=== PATIENT | female | born 1995 | race Caucasian/White ===

== ENCOUNTER → 2019-08-05 | Outpatient (CLI) | payer SELFPAY ==
--- NOTE | 2019-08-05 14:01 | RADIOLOGY REPORT (SQ) ---
EXAM DESCRIPTION: U/S [id number] TRNABD 1GES W/ODOP IMAGES COMPLETED DATE/TIME: 08/05/2019 1:51 pm REASON FOR STUDY: Z34.81 ENCNTR FOR SUPRVSN OF NORMAL FIRST PREG, FIRST TRIMESTER Z34.01 ENCNTR FOR SUPRVSN OF NORMAL FIRST PREG, FIRST TRIMES COMPARISON: None. TECHNIQUE: Transabdominal static and realtime grayscale images acquired of the pelvis. Additional se lected spectral and color Doppler images recorded. All images stored on PACs. bHCG: Not available. CLINICAL DATES: 9 weeks 1 day. LIMITATIONS: None. FINDINGS: FETUS: Single Living intrauterine . ULTRASOUND EGA: 9 weeks 0 days. ULTRASOUND MEL: 03/09/2020 EFW: Not applicable less than 20 weeks. CRL: 2.26 cm. FHR: 169 Beats per minute. SURVEY: Too early to assess. AMNIOTIC FLUID: Adequate amount. PLACENTA: Not yet developed due to early gestation. SUBCHORIONIC BLEED: No. SIZE OF BLEED: Not applicable. UTERUS: No masses. No anomalies. CERVICAL LENGTH: 2.4 cm. Closed. RIGHT ADNEXA: Normal ovary with normal vascular flow. No adnexal free fluid. No adnexal masses. LEFT ADNEXA: Normal ovary with normal vascular flow. No adnexal free fluid. No adnexal masses. FREE FLUID: None. OTHER: No other significant finding. IMPRESSION: LIVING INTRAUTERINE . EGA 9 WEEK 0 DAYS. Trimester of : First trimester - 0 to 13 weeks. TECHNICAL DOCUMENTATION: JOB ID: [id number] [employer]- All Rights Reserved Reading location - IP/workstation name: [email or web address]
== END ==
LOC: RAD 13:18
PROVIDERS: ATTEND Midwife
DX: O36.80X0 Pregnancy with inconclusive fetal viability, not applicable or unspecified (principal); Z3A.09 9 weeks gestation of pregnancy
CPT/HCPCS: 76801

== ENCOUNTER 2020-02-20 15:39 | Inpatient (IN) | payer OTHER, MEDICAID ==
[2020-02-20 16:32] LABS: APPEARANCE,URINE SLIGHTLY-CLOUDY; BILIRUBIN,URINE NEGATIVE (NEGATIVE); COLOR,URINE YELLOW; GLUCOSE, URINE NEGATIVE (NEGATIVE); KETONES,URINE NEGATIVE (NEGATIVE); LEUKOCYTE ESTERASE,URINE NEGATIVE (NEGATIVE); NITRITE,URINE NEGATIVE (NEGATIVE); PROTEIN,URINE >=500 mg/dL (NEGATIVE); URINE SPECIFIC GRAVITY 1.016; UROBILINOGEN,URINE NEGATIVE mg/dL (<2.0)
[2020-02-20 16:40] LABS: ABSOLUTE EOSINOPHILS # (AUTO) 0.2 10^3/uL (0.0-0.6); ABSOLUTE LYMPHOCYTES (AUTO) 2.2 10^3/uL (0.5-4.7); ABSOLUTE MONOCYTES (AUTO) 1.3 10^3/uL (0.1-1.4); ABSOLUTE NEUT (AUTO) 9.9 10^3/uL (1.7-8.2); BASOPHILS % (AUTO) 0.3 % (0-2); EOSINOPHILS % (AUTO) 1.1 % (0-6); HEMATOCRIT 33.8 % (36.0-47.0); HEMOGLOBIN 11.1 g/dL (12.0-15.5); LYMPHOCYTES % (AUTO) 16.2 % (13-45); MEAN CORPUSCULAR HEMOGLOBIN 27.5 pg (27.0-33.4); MEAN CORPUSCULAR HGB CONC 32.7 g/dL (32.0-36.0); MEAN CORPUSCULAR VOLUME 84 fl (80-97); MONOCYTES % (AUTO) 9.7 % (3-13); PLATELET COUNT 273 10^3/uL (150-450); RED BLOOD COUNT 4.02 10^6/uL (3.72-5.28); RED CELL DISTRIBUTION WIDTH 13.9 % (11.5-14.0); SEGMENTED NEUTROPHILS % (AUTO) 72.7 % (42-78); TOTAL CELLS COUNTED % (AUTO) 100 %; WHITE BLOOD COUNT 13.6 10^3/uL (4.0-10.5)
[2020-02-20 16:45] LABS: URINE AMPHETAMINES SCREEN NEGATIVE; URINE BARBITURATES SCREEN NEGATIVE; URINE BENZODIAZEPINES SCREEN NEGATIVE; URINE COCAINE SCREEN NEGATIVE; URINE MARIJUANA (THC) SCREEN NEGATIVE; URINE METHADONE SCREEN NEGATIVE; URINE PHENCYCLIDINE SCREEN NEGATIVE
[2020-02-20 16:46] LABS: URINE CREATININE 66.3 mg/dL (16-327)
[2020-02-20 16:58] LABS: UR PRO/CREAT RATIO RESULT 8.1 mg/mg (0.0-0.2); URINE PROTEIN 540.2 mg/dL (<12)
[2020-02-20 17:01] LABS: ALBUMIN 3.2 g/dL (3.5-5.0); ALKALINE PHOSPHATASE 228 U/L (38-126); ANION GAP 5 (5-19); ASPARTATE AMINO TRANSFERASE 26 U/L (14-36); BILIRUBIN,DIRECT 0.1 mg/dL (0.0-0.4); BILIRUBIN,TOTAL 0.5 mg/dL (0.2-1.3); BLOOD UREA NITROGEN 10 mg/dL (7-20); CALCIUM 9.8 mg/dL (8.4-10.2); CARBON DIOXIDE 20 mmol/L (22-30); CHLORIDE 106 mmol/L (98-107); GLUCOSE 73 mg/dL (75-110); TOTAL PROTEIN 6.3 g/dL (6.3-8.2); URIC ACID 5.9 mg/dL (2.5-6.2)
[2020-02-20] MEDS ORDERED: MAG HYDROX/AL HYDROX/SIMETH SUSP 30 ML UDCUP PO PRN (17:19)
[2020-02-20] MEDS ORDERED: ZOLPIDEM TARTRATE 5 MG TABLET PO PRN (17:19)
[2020-02-20] MEDS ORDERED: OXYTOCIN/0.9 % SODIUM CHLORIDE 30 UNIT/500 ML RTUINJ IV PRN (17:19)
[2020-02-20] MEDS ORDERED: DINOPROSTONE 10 MG VAGINAL INSERT.SR PV ONE (17:19)
[2020-02-20] MEDS ORDERED: ACETAMINOPHEN 325 MG TABLET PO PRN (17:19)
[2020-02-20] MEDS ORDERED: RINGERS SOLUTION,LACTATED 300 ML IV ONE (17:19)
[2020-02-20] MEDS ORDERED: OXYTOCIN/0.9 % SODIUM CHLORIDE 30 UNIT/500 ML RTUINJ ONE (17:25)
[2020-02-20] MEDS ORDERED: OXYTOCIN 10 UNIT/ML VIAL ONE (17:25)
[2020-02-20] MEDS ORDERED: DINOPROSTONE 10 MG VAGINAL INSERT.SR ONE (17:25)
[2020-02-20] MEDS ORDERED: LIDOCAINE 1% INJ-PF (10 MG/ML) 30 ML SDV ONE (17:25)
[2020-02-20] MEDS ORDERED: MISOPROSTOL 0.2 MG TABLET ONE (17:25)
--- NOTE | 2020-02-20 17:27 | Admission Physical ---
Datetime Report Generated by CPN: 02/20/2020 17:26 CURRENT ADMISSION Chief Complaint: Signs/Symptoms Gestational HTN Indication for Induction: PreEclampsia Admit Impression : Term, Intrauterine ; Obstetrical Complication Admit Plan: Admit to Unit; Initiate Labor Induction Protocol ALLERGIES Medication Allergies: No Medication Allergies: No Known Allergies (02/20/2020) Latex: No Latex Allergies Food Allergies: None Environmental Allergies: None OBSTETRICAL HISTORY EDC: 03/09/2020 00:00 : 1 Para: 0 Term: 0 : 0 SAB: 0 IAB: 0 Ectopic: 0 Livin Cesareans: 0 VBACs: 0 Multiple Births: 0 Gestational Diabetes: Yes Rh Sensitization: No Incompetent Cervix: No JONATHAN: No Infertility: No ART Treatment: No Uterine Anomaly: No IUGR: No Hx Previous C/S: No Macrosomia: No Hx Loss/Stillborn: No PIH: No Hx : No Placenta Previa/Abruption: No Depression/PP Depression: No PTL/PROM: No Post Hemorrhage: No Current Procedures: Ultrasound; NST Obstetrical History Comments: G1- Current, Preeclampsia? SEE RECORDS Alcohol: No Marijuana : No Other Illicit Drugs: No Cigarettes: Current Everyday Smoker. 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 Heart Disease: No Hosp/Surgery: Yes Autoimmune Disorder: No Anesthetic Complications: No Kidney Disease: No Abnormal Pap Smear: No Neuro/Epilepsy: No Psychiatric Disorders: No Other Medical Diseases: No Hepatitis/Liver Disease: No Significant Family History: No Varicosities/Phlebitis: No Trauma/Violence : No Thyroid Dysfunction: No Medical History Comments: Right arm fx INFECTIOUS HISTORY Gonorrhea: No Genital Herpes: No Chlamydia: No Tuberculosis: No Syphilis: No Hepatitis: No HIV/AIDS Exposure: No Rash or Viral Illness: No HPV: No PHYSICAL EXAM General: Normal HEENT: Normal Neurologic: Normal Thyroid: Normal Heart: Normal Lungs: Normal Breast: Deferred Back: Normal Abdomen: Normal Genitourinary Exam: Normal Extremities: Normal DTRs: Normal Pelvic Type: Adequate Vital Signs: Reviewed VAGINAL EXAM Dilatation: 1 Effacement: 0 Station: -2 MEMBRANES Pooling: Negative Membranes: Intact FETUS A EGA: 37.3 Monitoring: External US FHR- Baseline: 120 Variability: Moderate 6-25bpm Decelerations: None FHR Category: Category I Presentation: Vertex Admit Comment: She is 37 weeks with mildly elevated bp and elevate P/Cr ratio. We will proceed with admission and consider a 24 hour urine and or beginning the induction. PLANS FOR LABOR AND DELIVERY Labor and Delivery: None Pain Management: Epidural Feeding Preference: Breast Benefit of Breast Feed Discussed: Yes Circumcision: Yes INFORMED CONSENT Signature: with User ID: [email or web address]
[2020-02-20] MEDS: RINGERS SOLUTION,LACTATED 1,000 ML IV PRN ×2 (17:57→18:47)
[2020-02-21] MEDS ORDERED: ZOLPIDEM TARTRATE 5 MG TABLET PO PRN (01:23)
[2020-02-21] MEDS ORDERED: ZOLPIDEM TARTRATE 5 MG TABLET ONE (01:26)
[2020-02-21] MEDS ORDERED: MISOPROSTOL 0.1 MG TABLET ONE ×2 (08:05→12:54)
[2020-02-21] MEDS ORDERED: MISOPROSTOL 0.1 MG TABLET PV ONE (08:05)
[2020-02-21] MEDS ORDERED: SUCCINYLCHOLINE CHLORIDE INJ 200 MG/10 ML VIAL ONE (10:00)
[2020-02-21] MEDS: RINGERS SOLUTION,LACTATED 1,000 ML IV PRN (10:19)
[2020-02-21] MEDS ORDERED: EPHEDRINE SULFATE INJ 50 MG/1 ML AMPULE ONE ×2 (15:31→21:44)
[2020-02-21] MEDS ORDERED: ROPIVACAINE HCL 0.2% INJ/PF (2 MG/ML) 20 ML SDV ONE (15:32)
[2020-02-21] MEDS ORDERED: FENTANYL/BUPIVACAINE/NS/PF 300 MCG/150 ML RTUINJ EPI ONE (15:32)
[2020-02-21] MEDS ORDERED: LIDOCAINE 1% INJ-PF (10 MG/ML) 30 ML SDV ONE (19:28)
[2020-02-21] MEDS ORDERED: MAGNESIUM SULFATE 20 GM/500 ML RTUINJ IV ONE ×2 (21:36→22:45)
[2020-02-21] MEDS ORDERED: MAGNESIUM SULFATE 4 GM/100 ML RTUPB IV ONE (21:36)
[2020-02-21] MEDS ORDERED: LORAZEPAM INJ 2 MG/1 ML VIAL ONE (21:36)
[2020-02-21] MEDS ORDERED: MIDAZOLAM 2 MG/2 ML INJ ONE (21:44)
[2020-02-21] MEDS ORDERED: PHENYLEPHRINE HCL INJ/PF 10 MG/1 ML SDV ONE (21:44)
[2020-02-21] MEDS ORDERED: FENTANYL CITRATE INJ/PF 100 MCG/2 ML AMPUL ONE (21:44)
[2020-02-21] MEDS ORDERED: KETOROLAC TROMETHAMINE INJ/PF 30 MG/1 ML SDV ONE (21:44)
[2020-02-21] MEDS ORDERED: OXYTOCIN 10 UNIT/ML VIAL ONE ×2 (21:44→22:10)
[2020-02-21] MEDS ORDERED: OXYTOCIN/0.9 % SODIUM CHLORIDE 30 UNIT/500 ML RTUINJ ONE (21:45)
[2020-02-21] MEDS ORDERED: LIDOCAINE 2% INJ-PF (20 MG/ML) 10 ML AMPUL ONE (21:45)
[2020-02-21] MEDS ORDERED: ONDANSETRON HCL INJ/PF 4 MG/2 ML SDV ONE (21:45)
[2020-02-21] MEDS ORDERED: ACETAMINOPHEN 1,000 MG/100 ML RTUPB IV ONE (21:45)
[2020-02-21] MEDS ORDERED: LABETALOL HCL INJ 20 MG/4 ML DISP.SYRIN IV ONE ×2 (21:48)
[2020-02-21] MEDS ORDERED: CEFAZOLIN 2 GM/D5W RTU 2 GM/50 ML RTUPB IV ONE (21:52)
[2020-02-21] MEDS ORDERED: MISOPROSTOL 0.2 MG TABLET ONE (21:58)
[2020-02-21] MEDS ORDERED: CARBOPROST TROMETHAMINE INJ 250 MCG/1 ML AMPULE ONE (21:58)
[2020-02-21] MEDS ORDERED: PROPOFOL INJ 200 MG/20 ML VIAL IV ONE (22:10)
--- NOTE | 2020-02-21 22:40 | PDOC PROGRESS REPORT ---
Subjective Date:: 02/21/20 Subjective:: On floor when nurse in patients room called out that patient was seizing. Rapid response called.On entering patients room she was seizing and nurse and patients were at bedside. Seizure continued for approximately 30 seconds. Ativan given and Magnesium bolus followed by 2 gms/hr started. B/P was 183/111 and labatelol 20mg ordered IV stat. heart rate in 80-100 range. Patients pulse was normal at 90. section called stat and proceeded to OR. FHR had risen to over 100 beats per minute at this time. Ancef 2 gms ordered. D/c just prior to leaving room with FOB and he understood, agreed and questions answered Reason For Visit: Physical Exam - Physical Exam Vital Signs: Intake & Output 02/20/20 02/21/20 02/22/20 06:59 06:59 06:59 Intake Total 1104 Balance 1104 Weight 81 kg General appearance: PRESENT: other - Seizing then post ictal. Oriented to person and place prior to . Still very drosy Respiratory exam: PRESENT: clear to auscultation dolly Cardiovascular exam: PRESENT: RRR, +S1 GI/Abdominal exam: PRESENT: soft Neurological exam: PRESENT: altered, oriented to person, oriented to place, re flexes normal - no clonus Result Laboratory Results: 02/20/20 16:08 02/20/20 16:08 Assessment & Plan - Diagnosis (1) Eclamptic seizure Is this a current diagnosis for this admission?: Yes (2) Non-reassuring heart rate or rhythm affecting management of mother Is this a current diagnosis for this admission?: Yes - Time Time Spent with patient: 15-24 minutes - Plan Summary Plan Summary: Ativan Magnesium sulfate as above Emergent CS Ancef 2 gms IV Betadine prep
[2020-02-21] MEDS ORDERED: DIPH/PERTUSS(ACELL)/TETANUS VAC/PF 0.5 ML SYR (>=10YO) IM PRN (22:47)
[2020-02-21] MEDS ORDERED: OXYCODONE-ACETAMINOPHEN 5-325 MG TABLET PO PRN (22:47)
[2020-02-21] MEDS ORDERED: ACETAMINOPHEN 325 MG TABLET PO PRN (22:47)
[2020-02-21] MEDS ORDERED: RINGERS SOLUTION,LACTATED 1,000 ML IV PRN (22:47)
[2020-02-21] MEDS ORDERED: PROMETHAZINE HCL INJ 25 MG/1 ML VIAL IV PRN (22:47)
[2020-02-21] MEDS ORDERED: OXYTOCIN/0.9 % SODIUM CHLORIDE 30 UNIT/500 ML RTUINJ IV PRN (22:47)
[2020-02-21] MEDS ORDERED: SIMETHICONE 80 MG TAB.CHEW PO PRN (22:47)
[2020-02-21] MEDS ORDERED: MEASLES,MUMPS&RUBELLA VACC/PF 0.5 ML VIAL SUBCUT PRN (22:47)
--- NOTE | 2020-02-21 22:47 | Operative Report ---
Operative Report DATE OF SURGERY: 02/21/20 PREOPERATIVE DIAGNOSIS: Intrauterine at 37.4 weeks EGA. Induction of labor for preeclampsia. Preeclampsia. Ecclampsia. Non-reassuring heart tracing POSTOPERATIVE DIAGNOSIS: Same as above with addition of left paratubal cyst OPERATION: Primary cesaran section SURGEON: YU CASTRO ANESTHESIA: GA TISSUE REMOVED OR ALTERED: Placenta COMPLICATIONS: None ESTIMATED BLOOD LOSS: 700cc INTRAOPERATIVE FINDINGS: Normal appearing uterus, bilateral ovaries and fal lopian tubes. There was a 1 cm paratubal cyst on left. Amniotic fluid clear. Viable male . PROCEDURE: IV fluids: per anesthesia record Urinary output: 150 cc Findings: Normal-appearing uterus bilateral fallopian tubes and ovaries. 1 cm left paratubal cyst. Placenta grossly normal . Viable male infant with Apgars of 8 and 9, at 1 and 5 minutes respectively. Position: To recovery room in stable condition Description of procedure: The patient was taken to the operating room and general anesthesia was administered and found to be adequate. She was then placed on the OR table in the supine position with a slight leftward tilt. Patient was prepped with betadine and draped in usual sterile fashion. Ancef 2 gms was given IV prior to the procedure for infection prophylaxis. Timeout was taken. A Pfannenstiel skin incision was then made approximately 3 cm above the pubic symphysis and carried down to level the rectus fascia. The rectus fascia was then nicked in the midline with a scalpel and the fascial incision was extended laterally with use of curved Galeas scissors. The rectus fascia was then grasped with 2 Kocker clamps elevated and the underlying rectus muscle was dissected off both bluntly and sharply. The rectus muscles were then split in the midline and the peritoneum was entered. The peritoneal incision was then extended by manually stretching t he peritoneum. The bladder blade was positioned. The bladder was noted to be out of harm's way. A scalpel was then used in the lower uterine for the hysterotomy, slowly until amniotomy was obtained a moderate amount of clear fluid was noted. The uterine incision was then manually stretched. The was noted to be in vertex postion -deep in the pelvis. Using a hand deep in pelvis, the head was elevated and brought to the hysterotomy incision. The head then delivered with minmal difficulty. The shoulders and the rest of the body followed immediately. The cord was cut clamped and the was handed off to the nurse awaiting. was crying prior to hand off. The placenta was manually delivered. Using a lap gauze the uterus was cleared of all clots and debris. An nando retractor was placed to facilitate closure of uterus. The uterus was then exteriorized and a bladder blade was repositioned. The uterine incision was then closed with 0 Chromic suture in a running locked fashion. A second layer of the same suture was used in a running locked imbricated fashion. The uterine incision was inspected and noted to be hemostatic. Left paratubal cyst removed with bovie cautery. The posterior aspect of the uterus was then inspected and anatomy was seen as above. The uterus was returned to its normal anatomic position within the abdominal cavity. Warm saline irrigation was used to clear all clots and debris from the abdomen. The uterine incision was inspected once more and noted to remain hemostatic. The bladder blade was removed and the peritoneum was closed with 2-0 chromic in a running fashion. The rectus muscles were then reapproximated and the rectus fascia was closed with a #0 looped PDS in a running fashion. The subcutaneous tissue was then inspected and any bleeding was controlled with Bovie electrocautery. The subcutaneous tissue was then closed with 2-0 Plain Gut suture in a running fashion. The skin was then closed with 4-0 Monocryl in a running subcuticular fashion. The skin incision was then clean dried and Dermabond was applied over the skin incision. All instrument sponge and needle counts were correct x3 for the procedure the patient tolerated the procedure well. She will proceed to recovery room in stable condition
[2020-02-21] MEDS ORDERED: MORPHINE SULFATE 10 MG/ML INJ ONE (22:59)
[2020-02-21] MEDS ORDERED: HYDROMORPHONE HCL INJ/PF 2 MG/ML AMPULE ONE (23:52)
[2020-02-21] MEDS: HYDROMORPHONE HCL INJ/PF 2 MG/ML AMPULE IV PRN (23:53)
[2020-02-22 00:07] LABS: HEMATOCRIT 32.5 % (36.0-47.0); HEMOGLOBIN 10.4 g/dL (12.0-15.5); MEAN CORPUSCULAR HEMOGLOBIN 26.8 pg (27.0-33.4); MEAN CORPUSCULAR VOLUME 84 fl (80-97); PLATELET COUNT 263 10^3/uL (150-450); RED BLOOD COUNT 3.88 10^6/uL (3.72-5.28); RED CELL DISTRIBUTION WIDTH 13.8 % (11.5-14.0); WHITE BLOOD COUNT 26.8 10^3/uL (4.0-10.5)
[2020-02-22 00:20] LABS: ALBUMIN 2.8 g/dL (3.5-5.0); ALKALINE PHOSPHATASE 226 U/L (38-126); ANION GAP 5 (5-19); ASPARTATE AMINO TRANSFERASE 31 U/L (14-36); BILIRUBIN,DIRECT 0.1 mg/dL (0.0-0.4); BILIRUBIN,TOTAL 0.4 mg/dL (0.2-1.3); BLOOD UREA NITROGEN 12 mg/dL (7-20); CALCIUM 8.5 mg/dL (8.4-10.2); CARBON DIOXIDE 20 mmol/L (22-30); CHLORIDE 106 mmol/L (98-107); GLUCOSE 120 mg/dL (75-110); POTASSIUM 4.2 mmol/L (3.6-5.0); TOTAL PROTEIN 5.6 g/dL (6.3-8.2); URIC ACID 8.5 mg/dL (2.5-6.2)
[2020-02-22] MEDS ORDERED: HYDROMORPHONE HCL INJ/PF 2 MG/ML AMPULE ONE (00:20)
[2020-02-22 00:41] LABS: ABSOLUTE LYMPHOCYTES# (MANUAL) 1.1 10^3/uL (0.5-4.7); ABSOLUTE MONOCYTES # (MANUAL) 2.4 10^3/uL (0.1-1.4); BASOPHILS % (MANUAL) 0 % (0-2); EOSINOPHILS % (MANUAL) 0 % (0-6); LYMPHOCYTES % (MANUAL) 4 % (13-45); MONOCYTES % (MANUAL) 9 % (3-13); SEGMENTED NEUTROPHILS % (MAN) 87 % (42-78); TOTAL CELLS COUNTED 100
[2020-02-22 00:42] LABS: PLATELET COMMENT ADEQUATE; POLYCHROMASIA SLIGHT; TEAR DROP CELLS SLIGHT; TOXIC GRANULATION 1+
[2020-02-22] MEDS: HYDROMORPHONE HCL INJ/PF 2 MG/ML AMPULE IV PRN (01:21)
[2020-02-22] MEDS ORDERED: CEFAZOLIN 1 GM/D5W RTU 1 GM/50 ML RTUPB IV ONE ×4 (01:48→18:23)
[2020-02-22] MEDS: CEFAZOLIN 1 GM/D5W RTU 1 GM/50 ML RTUPB IV SCH ×4 (01:52→18:23)
[2020-02-22] MEDS: KETOROLAC TROMETHAMINE INJ/PF 30 MG/1 ML SDV IV SCH ×3 (01:58→12:27)
--- NOTE | 2020-02-22 02:12 | Delivery Summary ---
Del Sum A-C Datetime Report Generated by CPN: 02/22/2020 02:11 DELIVERY PERSONNEL DELIVERY PERSONNEL: [id number] Delivery Doctor:: Patience Manzanares MD GLASS BLOWER:: Kristian Medina CRNA Dog Handler:: Mar Bray, KIMBERLY Stereo Plotter Operator/SECOND WATCH SERGEANT: Marycruz Monreal, KNIT GOODS PRESS HAND Stereo Plotter Operator/SECOND WATCH SERGEANT: Lorene Lopez, ST MATERNAL INFORMATION Delivery Anesthesia: Epidural; General Medications During Delivery: Labetalol 20mg SIVP, see anesthesia record Medications After Delivery: Pitocin 30 Units in 500ml NS/D5W; Other-Please Comment Meds After Delivery Comment: Magnesium 2 grams/hr IV started per orders Maternal Complications: Seizures; Other Complication Details: Eclampsia LABOR SUMMARY EDC: 03/08/2020 00:00 No. Babies in Womb: 1 Attempted: No Labor Anesthesia: Epidural LABOR INFORMATION Reason for Induction: Pre-Eclampsia Onset of Labor: 02/21/2020 12:47 Complete Dilatation: 02/21/2020 19:01 Cervical Ripening Agents: Cervidil; Cytotec @ Oxytocin: Induction Group B Beta Strep: negative Steroids Given: None Reason Steroids Not Administered: Not Applicable MEMBRANES Membranes Rupture Method: Spontaneous Rupture of Membranes: 02/21/2020 15:10 Length of Rupture (hr): 6.80 Amniotic Fluid Color: Clear Amniotic Fluid Amount: Small Amniotic Fluid Odor: Normal STAGES OF LABOR Stage 1 hr: 6 Stage 1 min: 14 Stage 2 hr: 2 Stage 2 min: 57 Stage 3 hr: 0 Stage 3 min: 2 Total Time in Labor hr: 9 Total Time in Labor min: 13 VAGINAL DELIVERY Episiotomy: None Laceration #1: None Laceration Extension #1: N/A CSECTION DELIVERY Primary Indication: Nonreassuring Status Other Primary Indication: Eclampsia CSection Urgency: Emergency CSection Incidence: Primary Labor: Labor Elective: Nonelective CSection Incision: Lower Uterine Transverse BABY A INFORMATION Delivery Date/Time: 02/21/2020 21:58 Method of Delivery: Nurse Controlled Delivery: No Born in Route : No : N/A Forceps: N/A Vacuum Extraction: N/A Shoulder Dystocia : No PRESENTATION/POSITION BABY A Presentation: Cephalic Cephalic Presentation: Vertex Vertex Position: Right Occipital Anterior Breech Presentation: N/A PLACENTA INFORMATION BABY A Placenta Delivery Time : 02/21/2020 22:00 Placenta Method of Delivery: Manual Removal Placenta Status: Delivered SCORES BABY A Heart Rate 1 min: >100 bpm Resp Effort 1 min: Good Cry Reflex Irritability 1 min: Cough or Sneeze or Pulls Away Muscle Tone 1 min: Active Motion Color 1 min: Blue/Pale SCORE 1 MIN: 8 Heart Rate 5 min: >100 bpm Resp Effort 5 min: Good Cry Reflex Irritability 5 min: Cough or Sneeze or Pulls Away Muscle Tone 5 min: Active Motion Color 5 min: Body [place], Extremities Blue SCORE 5 MIN: 9 INFORMATION BABY A Gestational Age at Delivery: 37.5 Gestational Status: Early Term- 37- 38.6 Weeks Outcome : Liveborn Infant Condition : Stable Infant Sex: Male IDENTIFICATION BABY A Verification Date/Time: 02/21/2020 23:09 ID Band Number: [id number] Mother's Name Verified: Yes Infant RN Verifying : Pamela Ott, RN WEIGHT/LENGTH BABY A Infant Birthweight (gm): 2830 Infant Weight (lb): 6 Infant Weight (oz): 4 Length (in): 19.50 Infant Length (cm): 49.53 CORD INFORMATION BABY A No. Cord Vessels: 3 Nuchal Cord : N/A Cord Blood Taken: Yes-For Storage (Mom's Blood type +) ASSESSMENT BABY A Complications: Extended Bradycardia Physical Findings at Delivery: Within Normal Limits Infant Respirations: Appears Normal Skin to Skin: No Nuclear Officer/ALS Called : No Infant Care By: KIMBERLY Jackson and KIMBERLY Ray Transferred To: Nursery BABY B INFORMATION : N/A
--- NOTE | 2020-02-22 02:12 | Birth Certificate Data ---
Cert Data Datetime Report Generated by CPN: 02/22/2020 02:11 CERTIFICATE DATA Delivery Provider: Patience Manzanares MD (02/21/2020 22:30:Shakira Curry RN) 47a. Care: Yes (02/20/2020 16:03:Jayde Joshua RN) 47b. Date of First Visit: 07/28/2019 00:00 (02/20/2020 16:03:Jayde Joshua RN) 47c. Date of Last Visit: 02/20/2020 00:00 (02/20/2020 16:03:Jayde Joshua RN) 47d. Number of Visits: 13 (02/20/2020 16:03:Jayde Joshua RN) 48a. Number of Prev Live Births: 0 (02/20/2020 16:03:Remy Gaston RN) 48b. Now Livin (02/20/2020 16:03:Remy Gaston RN) 48c. Live Births Now : 0 (02/20/2020 16:03:QS system process) 48e. Losses: 0 (02/20/2020 16:03:Remy Gaston RN) RISK FACTORS IN THIS 49a. Diabetes: Yes (02/20/2020 16:03:Jayde Joshua RN) Type of Diabetes: Gestational Diabetes (02/20/2020 16:03:Jayde Joshua RN) 49b. Hypertension: Unknown (02/20/2020 16:03:Remy Gaston RN) 49c. Previous Births: 0 (02/20/2020 16:03:Remy Gaston RN) 49d. Stillborns: No (02/20/2020 16:03:Remy Gaston RN) 49d. IUGR: No (02/20/2020 16:03:Remy Gaston RN) 49e. Infertility Treatment: No (02/20/2020 16:03:Remy Gaston RN) 49f. Previous Cesareans: 0 (02/20/2020 16:03:Remy Gaston RN) Mother's Height 50b. Height Inches: 62 (02/21/2020 09:31:QS system process) Mother's Weight 51a. Pre- Weight (lbs): 137 (02/20/2020 16:03:Jayde Joshua RN) 51b. Weight at Delivery (lbs): 178 (02/20/2020 16:18:QS system process) 52. Dt Last Normal Menses Began: 06/02/2019 00:00 (02/20/2020 16:03:Jayde Joshua RN) Infections Present/Treated 53a. Gonorrhea: No (02/20/2020 16:03:Remy Gaston RN) Results this Hospital Visit : Negative (02/20/2020 16:03:Jayde Joshua RN) 53b. Syphilis: No (02/20/2020 16:03:Remy Gaston RN) Results this Hospital Visit: NONREACTIVE (02/20/2020 19:48:QS system process) 53c. Chlamydia: No (02/20/2020 16:03:Remy Gaston RN) Results this Hospital Visit: Negative (02/20/2020 16:03:Jayde Joshua RN) 53d. Hepatitis B: No (02/20/2020 16:03:Remy Gaston RN) Results this Hospital Visit: Negative (02/20/2020 16:03:Remy Gaston RN) 53e. Hepatitis C: Negative (02/20/2020 16:03:Jayde Joshua RN) 53h. Mother Tested for HBsAG: Yes (02/20/2020 16:03:Jayde Joshua RN) 53i. Date Tested: 09/20/2019 00:00 (02/20/2020 16:03:Jayde Joshua RN) 53j. Test Result: Negative (02/20/2020 16:03:Remy Gaston RN) Obstetric Procedures 54a, b, c. Obstetric Procedures: Ultrasound; NST (02/20/2020 16:03:Remy Gaston RN) Cigarette Smoking Cigarette Smoking: Current Everyday Smoker. [id number] (02/20/2020 16:03:Remy Gaston RN) 55a. 3 Months Before Preg - Ci (02/20/2020 16:03:Remy Gaston RN) 55b. 1st Trimester of Preg- Ci (02/20/2020 16:03:Remy Gaston RN) 55c. 2nd Trimester of Preg- Ci (02/20/2020 16:03:Remy Gaston RN) 55d. 3rd Trimester of Preg- Ci (02/20/2020 16:03:Remy Gaston RN) Onset of Labor 56a. PROM >12 Hrs: 6.80 (02/21/2020 15:10:QS system process) 56b. Precipitous Labor <3 Hrs: 9 (02/20/2020 16:03:QS system process) 56c. Prolonged Labor > 20 Hrs: 9 (02/20/2020 16:03:QS system process) 57a. Induction of Labor: Induction (02/20/2020 16:03:Gabrielle Zambrano RN) 57a. Induction of Labor: Cervidil; Cytotec @ (02/21/2020 13:00:Gabrielle Zambrano RN) 57c. Non-Vertex Presentation A: Vertex (02/20/2020 16:03:Shakira Curry RN) 57d. Steroids - Lung Mat: None (02/20/2020 16:03:Gabrielle Zambrano RN) 57d. Steroids - Lung Mat: Not Applicable (02/20/2020 16:03:Gabrielle Zambrano RN) 57g. Moderate/Heavy Meconium: Clear (02/21/2020 15:10:Gabrielle Zambrano RN) 57h. Intolerance of Labor: Nonreassuring Status (02/20/2020 16:03:Shakira Curry RN) : Eclampsia (02/20/2020 16:03:Shakira Curry RN) 57i. Epidural/Spinal Anesthesia: Epidural (02/20/2020 16:03:Shakira Curry RN) Method of Delivery 58a. Forceps - Unsuccessful A: N/A (02/20/2020 16:03:Shakira Curry RN) 58b. Vacuum - Unsuccessful A: N/A (02/20/2020 16:03:Shakira Curry RN) 58c. Presentation at 58c. Presentation at - A : Vertex (02/20/2020 16:03:Shakira Curry RN) 58c. Presentation at - A : N/A (02/20/2020 16:03:Shakira Curry RN) 58c. Presentation at - A : Cephalic (02/20/2020 16:03:Shakira Curry RN) Final Route and Method of Del 58d. Baby A Route/Delivery: (02/20/2020 16:03:Shakira Curry RN) 58e. Trial of Labor Attempted: No (02/20/2020 16:03:Gabrielle Zambrano RN) 58e. Trial of Labor Attempted A: N/A (02/20/2020 16:03:Gabrielle Zambrano RN) 58e. Trial of Labor Attempted B: N/A (02/20/2020 16:03:Gabrielle Zambrano RN) Maternal Morbidity 59b. 3rd or 4th Degree Lacs: None (02/20/2020 16:03:Shakira Curry RN) Birthweight Baby A: 2830 (02/20/2020 16:03:Alba Ray, RN) 60a. Pounds : 6 (02/20/2020 16:03:QS system process) 60b. Ounces: 4 (02/20/2020 16:03:QS system process) 61. GA at Delivery Baby A: 37.5 (02/20/2020 16:03:Shakira Curry RN) : Early Term- 37- 38.6 Weeks (02/20/2020 16:03:QS system process) 62a. 5 Minute Baby A: 9 (02/20/2020 16:03:QS system process)
[2020-02-22] MEDS ORDERED: KETOROLAC TROMETHAMINE INJ/PF 30 MG/1 ML SDV ONE ×2 (05:44→12:11)
[2020-02-22] MEDS ORDERED: OXYCODONE-ACETAMINOPHEN 5-325 MG TABLET ONE ×3 (05:59→23:03)
[2020-02-22] MEDS: OXYCODONE-ACETAMINOPHEN 5-325 MG TABLET PO PRN ×3 (06:02→23:04)
[2020-02-22 06:11] LABS: HEMOGLOBIN 9.6 g/dL (12.0-15.5); MEAN CORPUSCULAR HEMOGLOBIN 27.6 pg (27.0-33.4); MEAN CORPUSCULAR HGB CONC 33.2 g/dL (32.0-36.0); MEAN CORPUSCULAR VOLUME 83 fl (80-97); PLATELET COUNT 242 10^3/uL (150-450); RED BLOOD COUNT 3.49 10^6/uL (3.72-5.28); RED CELL DISTRIBUTION WIDTH 13.8 % (11.5-14.0); WHITE BLOOD COUNT 23.5 10^3/uL (4.0-10.5)
[2020-02-22 06:33] LABS: ALBUMIN 2.7 g/dL (3.5-5.0); ALKALINE PHOSPHATASE 189 U/L (38-126); ANION GAP 6 (5-19); ASPARTATE AMINO TRANSFERASE 36 U/L (14-36); BILIRUBIN,DIRECT 0.1 mg/dL (0.0-0.4); BILIRUBIN,TOTAL 0.5 mg/dL (0.2-1.3); BLOOD UREA NITROGEN 10 mg/dL (7-20); CARBON DIOXIDE 22 mmol/L (22-30); CHLORIDE 105 mmol/L (98-107); GLUCOSE 113 mg/dL (75-110); POTASSIUM 4.7 mmol/L (3.6-5.0); TOTAL PROTEIN 5.3 g/dL (6.3-8.2)
[2020-02-22] MEDS ORDERED: MAGNESIUM SULFATE 20 GM/500 ML RTUINJ IV ONE ×2 (08:26→19:12)
[2020-02-22] MEDS ORDERED: MAGNESIUM SULFATE 20 GM/500 ML RTUINJ IV PRN (08:35)
[2020-02-22] MEDS ORDERED: PRENATAL VITAMIN W DHA CAPSULE PO ONE (12:10)
[2020-02-22] MEDS ORDERED: DOCUSATE SODIUM 100 MG CAPSULE ONE (12:11)
[2020-02-22] MEDS: PRENATAL VITAMIN W DHA CAPSULE PO SCH (12:13)
[2020-02-22] MEDS: DOCUSATE SODIUM 100 MG CAPSULE PO SCH ×2 (12:14→20:32)
[2020-02-22] MEDS: IBUPROFEN 800 MG TABLET PO SCH ×2 (20:32→23:04)
[2020-02-22] MEDS ORDERED: IBUPROFEN 800 MG TABLET ONE (23:02)
[2020-02-23] MEDS: CEFAZOLIN 1 GM/D5W RTU 1 GM/50 ML RTUPB IV SCH ×3 (05:00→18:54)
[2020-02-23] MEDS: IBUPROFEN 800 MG TABLET PO SCH ×3 (05:06→22:14)
[2020-02-23] MEDS: DOCUSATE SODIUM 100 MG CAPSULE PO SCH ×2 (09:30→17:43)
[2020-02-23] MEDS: PRENATAL VITAMIN W DHA CAPSULE PO SCH (09:30)
--- NOTE | 2020-02-23 14:27 | PDOC PROGRESS REPORT ---
Subjective Date:: 02/23/20 Subjective:: She reports that she is doing well today. Reason For Visit: She had a c section on the evening of the 8th. Physical Exam - Physical Exam Vital Signs: Temp Pulse Resp BP Pulse Ox 97.7 F 71 16 126/88 H 99 02/23/20 11:16 02/23/20 11:16 02/23/20 11:16 02/23/20 11:16 02/23/20 11:16 Intake & Output 02/22/20 02/23/20 02/24/20 06:59 06:59 06:59 Intake Total 50 100 1050 Balance 50 100 1050 General appearance: PRESENT: no acute distress, well-developed, well-nourished Head exam: PRESENT: atraumatic, normocephalic Pulses: PRESENT: normal dorsalis pedis pul, +2 pedal pulses bilateral Vascular exam: PRESENT: normal capillary refill Extremities exam: PRESENT: full ROM. ABSENT: calf tenderness, clubbing, pedal edema Result Laboratory Results: 02/22/20 05:57 02/22/20 05:57 Impressions: Post from c section and seizure. She is doing well today. Home t omorrow. Assessment & Plan - Time Time Spent with patient: 15-24 minutes Anticipated discharge: Home Anticipated DC Timeframe: within 48 hours
[2020-02-24] MEDS: IBUPROFEN 800 MG TABLET PO SCH (05:36)
[2020-02-24] MEDS: PRENATAL VITAMIN W DHA CAPSULE PO SCH (10:00)
[2020-02-24] MEDS: DOCUSATE SODIUM 100 MG CAPSULE PO SCH (10:00)
--- NOTE | 2020-02-24 10:34 | PDOC DISCHARGE SUMMARY ---
Impression - Admit/DC Date/PCP Admission Date/Primary Care Provider: 02/20/20 17:20 MIKHAIL ALLRED CNM Discharge Date: 02/24/20 - POD #3, doing well, denies h/a or SOB. A+. Rubella immune, . S/p Eclamptic seizure this admission. Had IOL for Pre-Eclampsia - Discharge Diagnosis (1) Eclamptic seizure Is this a current diagnosis for this admission?: Yes (2) Non-reassuring heart rate or rhythm affecting management of mother Is this a current diagnosis for this admission?: Yes (3) Preeclampsia Is this a current diagnosis for this admission?: Yes (4) S/P primary low transverse Is this a current diagnosis for this admission?: Yes (5) SROM (spontaneous rupture of membranes) Is this a current diagnosis for this admission?: Yes - Additional Information Resuscitation Status: Full Code Discharge Diet: As Tolerated, Regular Discharge Activity: Activity As Tolerated, No Driving, No Lifting Over 10 Pounds, Pelvic Rest Referrals: MIKHAIL ALLRED CNM [Primary Care Provider] - Prescriptions: Ibuprofen [Motrin 800 mg Tablet] 800 mg PO Q8 #60 tablet Oxycodone HCl/Acetaminophen [Percocet 5-325 mg Tablet] 1 tab PO Q4HP PRN #30 tablet PRN Reason: Pain Scale Of 4 Home Medications: Vit No.130/Iron/Folic [ Tablet] 1 each PO DAILY 02/20/20 Ibuprofen [Motrin 800 mg Tablet] 800 mg PO Q8 #60 tablet 02/24/20 Oxycodone HCl/Acetaminophen [Percocet 5-325 mg Tablet] 1 tab PO Q4HP PRN #30 tablet 02/24/20 HPI Reason(s) for Admission: Induction of Labor Admission Note: for Pre-eclampsia Procedures: NST, Ultrasound, Management of Obstetric Complications Intrapartum Procedure(s): : Low Cervical, Transverse Intrapartum Procedure Note: eclamptic seizure, pt placed on Magnessium Sulfate Hospital Course 59. Maternal Morbidity (serious complications experinced by the mother associated with labor and delivery: None of the above Results Laboratory Results: WBC 23.5 10^3/uL (4.0-10.5) H 02/22/20 05:57 RBC 3.49 10^6/uL (3.72-5.28) L 02/22/20 05:57 Hgb 9.6 g/dL (12.0-15.5) L 02/22/20 05:57 Hct 29.0 % (36.0-47.0) L 02/22/20 05:57 MCV 83 fl (80-97) 02/22/20 05:57 MCH 27.6 pg (27.0-33.4) 02/22/20 05:57 MCHC 33.2 g/dL (32.0-36.0) 02/22/20 05:57 RDW 13.8 % (11.5-14.0) 02/22/20 05:57 Plt Count 242 10^3/uL (150-450) 02/22/20 05:57 Lymph % (Auto) Not Reportable 02/21/20 23:49 [place] % (Auto) Not Reportable 02/21/20 23:49 Eos % (Auto) Not Reportable 02/21/20 23:49 Baso % (Auto) Not Reportable 02/21/20 23:49 Absolute Neuts (auto) Not Reportable 02/21/20 23:49 Absolute Lymphs (auto) Not Reportable 02/21/20 23:49 Absolute Monos (auto) Not Reportable 02/21/20 23:49 Absolute Eos (auto) Not Reportable 02/21/20 23:49 Absolute Basos (auto) Not Reportable 02/21/20 23:49 Total Counted 100 02/21/20 23:49 Seg Neutrophils % Not Reportable 02/21/20 23:49 Seg Neuts % (Manual) 87 % (42-78) H 02/21/20 23:49 Lymphocytes % (Manual) 4 % (13-45) L 02/21/20 23:49 Monocytes % (Manual) 9 % (3-13) 02/21/20 23:49 Eosinophils % (Manual) 0 % (0-6) 02/21/20 23:49 Basophils % (Manual) 0 % (0-2) 02/21/20 23:49 Abs Neuts (Manual) 23.3 10^3/uL (1.7-8.2) H 02/21/20 23:49 Abs Lymphs (Manual) 1.1 10^3/uL (0.5-4.7) 02/21/20 23:49 Abs Monocytes (Manual) 2.4 10^3/uL (0.1-1.4) H 02/21/20 23:49 Absolute Eos (Manual) 0.0 10^3/uL (0.0-0.6) 02/21/20 23:49 Abs Basophils (Manual) 0.0 10^3/uL (0.0-0.2) 02/21/20 23:49 Toxic Granulation 1+ 02/21/20 23:49 Platelet Comment ADEQUATE 02/21/20 23:49 Polychromasia SLIGHT 02/21/20 23:49 Tear Drop Cells SLIGHT 02/21/20 23:49 Sodium 133.3 mmol/L (137-145) L 02/22/20 05:57 Potassium 4.7 mmol/L (3.6-5.0) 02/22/20 05:57 Chloride 105 mmol/L (98-107) 02/22/20 05:57 Carbon Dioxide 22 mmol/L (22-30) 02/22/20 05:57 Anion Gap 6 (5-19) 02/22/20 05:57 BUN 10 mg/dL (7-20) 02/22/20 05:57 Creatinine 0.70 mg/dL (0.52-1.25) 02/22/20 05:57 Est GFR ( Amer) > 60 (>60) 02/22/20 05:57 Est GFR (MDRD) Non-Af > 60 (>60) 02/22/20 05:57 Glucose 113 mg/dL (75-110) H 02/22/20 05:57 Lactic Acid 2.0 mmol/L (0.7-2.1) 02/22/20 05:57 Uric Acid 9.0 mg/dL (2.5-6.2) H 02/22/20 05:57 Calcium 8.0 mg/dL (8.4-10.2) L 02/22/20 05:57 Total Bilirubin 0.5 mg/dL (0.2-1.3) 02/22/20 05:57 Direct Bilirubin 0.1 mg/dL (0.0-0.4) 02/22/20 05:57 Neonat Total Bilirubin Not Reportable 02/22/20 05:57 Neonat Direct Bilirubin Not Reportable 02/22/20 05:57 Neonat Indirect Bili Not Reportable 02/22/20 05:57 AST 36 U/L (14-36) 02/22/20 05:57 ALT 14 U/L (<35) 02/22/20 05:57 Alkaline Phosphatase 189 U/L (38-126) H 02/22/20 05:57 Lactate Dehydrogenase 255 U/L (120-246) H 02/21/20 23:49 Total Protein 5.3 g/dL (6.3-8.2) L 02/22/20 05:57 Albumin 2.7 g/dL (3.5-5.0) L 02/22/20 05:57 Urine Color YELLOW 02/20/20 16:00 Urine Appearance SLIGHTLY-CLOUDY 02/20/20 16:00 Urine pH 7.0 (5.0-9.0) 02/20/20 16:00 Ur Specific [place] 1.016 02/20/20 16:00 Urine Protein >=500 mg/dL (NEGATIVE) H 02/20/20 16:00 Urine Glucose (UA) NEGATIVE mg/dL (NEGATIVE) 02/20/20 16:00 Urine Ketones NEGATIVE mg/dL (NEGATIVE) 02/20/20 16:00 Urine Blood NEGATIVE (NEGATIVE) 02/20/20 16:00 Urine Nitrite NEGATIVE (NEGATIVE) 02/20/20 16:00 Urine Bilirubin NEGATIVE (NEGATIVE) 02/20/20 16:00 Urine Urobilinogen NEGATIVE mg/dL (<2.0) 02/20/20 16:00 Ur Leukocyte Esterase NEGATIVE (NEGATIVE) 02/20/20 16:00 Urine WBC (Auto) 2 /HPF 02/20/20 16:00 Urine RBC (Auto) 0 /HPF 02/20/20 16:00 U Hyaline Cast (Auto) 1 /LPF 02/20/20 16:00 Urine Bacteria (Auto) 1+ /HPF 02/20/20 16:00 Squamous Epi Cells Auto 1 /HPF 02/20/20 16:00 Urine Mucus (Auto) RARE /LPF 02/20/20 16:00 Urine Creatinine 66.3 mg/dL (16-327) 02/20/20 16:00 Protein/Creatinin Ratio 8.1 mg/mg (0.0-0.2) H 02/20/20 16:00 Urine Total Protein 540.2 mg/dL (<12) H 02/20/20 16:00 Urine Ascorbic Acid NEGATIVE (NEGATIVE) 02/20/20 16:00 Urine Opiates Screen NEGATIVE 02/20/20 16:00 Urine Methadone Screen NEGATIVE 02/20/20 16:00 Ur Barbiturates Screen NEGATIVE 02/20/20 16:00 Ur Phencyclidine Scrn NEGATIVE 02/20/20 16:00 Ur Amphetamines Screen NEGATIVE 02/20/20 16:00 U Benzodiazepines Scrn NEGATIVE 02/20/20 16:00 Urine Cocaine Screen NEGATIVE 02/20/20 16:00 U Marijuana (THC) Screen NEGATIVE 02/20/20 16:00 RPR NONREACTIVE (NONREACTIVE) 02/20/20 19:48 COVID-19 Source Cancelled 02/23/20 00:15 COVID-19 (RONAN) Cancelled 02/23/20 00:15 Influenza A (RT-PCR) NEGATIVE (NEGATIVE) 02/23/20 00:15 Influenza B (RT-PCR) NEGATIVE (NEGATIVE) 02/23/20 00:15 RSV (RT-PCR) NEGATIVE (NEGATIVE) 02/23/20 00:15 SARS-CoV-2 Rap RNA(RT-PCR) NEGATIVE (NEGATIVE) 02/23/20 00:15 Blood Type A POSITIVE 02/20/20 19:48 Antibody Screen NEGATIVE 02/20/20 19:48 Plan Plan of Treatment: d/c home, f/up with [facility] in one week for BP and incision check. F/up for SOB, swelling, headach Time Spent: Less than 30 Minutes
[2020-02-24 11:21] VITALS: BP 121/65
== END 2020-02-24 11:55 | disposition home or self-care (01) | DRG 787 ==
LOC: LC 15:39 → LR 17:20 → 2S 02-23 04:08
PROVIDERS: ADMIT Obstetrics & Gynecology; ATTEND Obstetrics & Gynecology
PROC: 10D00Z1 Extraction of Products of Conception, Low, Open Approach (ICD-10-PCS; principal; 2020-02-21)
PROC: 3E033VJ Introduction of Other Hormone into Peripheral Vein, Percutaneous Approach (ICD-10-PCS; 2020-02-21)
DX: O15.1 Eclampsia complicating labor (principal); G40.89 Other seizures; O24.419 Gestational diabetes mellitus in pregnancy, unspecified control; F12.90 Cannabis use, unspecified, uncomplicated; O13.4 Gestational [pregnancy-induced] hypertension without significant proteinuria, complicating childbirth; O76 Abnormality in fetal heart rate and rhythm complicating labor and delivery; O99.333 Smoking (tobacco) complicating pregnancy, third trimester; F17.210 Nicotine dependence, cigarettes, uncomplicated; Z3A.37 37 weeks gestation of pregnancy; Z37.0 Single live birth; Z72.89 Other problems related to lifestyle; Z11.59 Encounter for screening for other viral diseases
CPT/HCPCS: 1967; 1968; 36415; 80053; 80307; 81001; 82570; 83605; 83615; 84156; 84550; 85025; 85027; 86592; 86850; 86900; 86901; 88307; 94760; 94799; 99140; 0241U; C9803; J0131; J0330; J0690; J1170; J1885; J2060; J2250; J2270; J2370; J2405; J2590; J2704; J2795; J3010; J3475; J3490